=== PATIENT | male | born 1990 | race Caucasian/White ===

== ENCOUNTER 2017-03-20 09:42 | Emergency (ER) | payer MEDICAID ==
--- NOTE | 2017-03-20 09:54 | CPEKG ---
Heart Rate: 85 RR Interval: 706 P-R Interval: 140 QRSD Interval: 94 QT Interval: 360 QTC Interval: 428 P Wooton: 61 QRS Wooton: 77 T Wave Wooton: 66 EKG Severity - NORMAL ECG - EKG Impression: SINUS RHYTHM Electronically Signed By: Paty Ventura 22-Mar-2017 14:07:22
[2017-03-20 09:58] VITALS: PULSE 80; TEMP 98.6
[2017-03-20] MEDS ORDERED: LORazepam 2 MG/ML INJ IVP ONE (10:01)
[2017-03-20] MEDS ORDERED: LORazepam 2 MG/ML INJ ONE (10:03)
[2017-03-20] MEDS ORDERED: NS 1,000 ML IV ONE (10:06)
[2017-03-20 10:27] LABS: % IMMATURE GRANULYOCYTES 0.8 % (0.0-1.1); ABSOLUTE IMMATURE GRANULOCYTES 0.08 10^3/uL (0.00-0.10); ADD DIFF? NO; ADD MORPH? NO; ADD SCAN? NO; ATYPICAL LYMPHOCYTE FLAG 10 (0-99); FRAGMENT RBC FLAG 0 (0-99); HEMATOCRIT 51.7 % (40.0-51.0); HEMOGLOBIN 17.9 g/dL (13.7-17.5); LEFT SHIFT FLG 0 (0-99); LIPEMIA HEMOLYSIS FLAG 90 (0-99); MEAN CELL HEMOGLOBIN CONCENTR. 34.6 g/dL (32.4-36.7); MEAN CELL VOLUME 86.7 fL (81.5-99.8); MEAN PLATELET VOLUME 8.7 fL (8.7-11.7); PLATELET CLUMPS FLAG 0 (0-99); PLATELET COUNT 334 10^3/uL (150-400); RED BLOOD CELL COUNT 5.96 10^6/uL (4.40-6.38); RED CELL DISTRIBUTION WIDTH 12.3 % (11.5-15.2)
[2017-03-20 10:33] LABS: ANION GAP 29 mEq/L (8-16); CALCIUM 10.6 mg/dL (8.5-10.4); CARBON DIOXIDE 18 mEq/l (22-31); CHLORIDE 96 mEq/L (97-110); CREATININE 1.2 mg/dL (0.7-1.3); GLOMERULAR FILTRATION RATE > 60; GLUCOSE 168 mg/dL (70-100); POTASSIUM 4.2 mEq/L (3.5-5.2); SODIUM 143 mEq/L (134-144)
--- NOTE | 2017-03-20 10:51 | EDPHY ---
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 He was brought to the emergency department by ambulance after he apparently walked into a marijuana dispensary just prior to arrival then was witnessed to have an apparent tonic-clonic seizure lasting approximately 1 min. He did not his head and did not bite his tongue. The patient remembers nothing of this incident. He denies substances used over the last 24 hr except for marijuana. He has no history of seizure disorder or similar incident. On my exam, he has no complaints. REVIEW OF SYSTEMS: Aside from elements discussed in the HPI, a comprehensive 10-point review of systems was reviewed and is negative. PMH: Osteochondroma. No history of seizure disorder. SOCIAL HISTORY: Uses marijuana. Single. Denies other drug use. PHYSICAL EXAM: General:Patient is alert, in no acute distress. ENT:Eyes are normal to inspection. ENT inspection normal. No tongue laceration. Neck: Normal inspection. Full range of motion. Respiratory:No respiratory distress. Breath sounds normal bilaterally. Cardiovascular: Regular rate and rhythm. Strong peripheral pulses. Normal cap refill. Abdomen:The abdomen is nontender to palpation. There are no peritoneal signs. There are normal bowel sounds. Back: Normal to inspection. No tenderness to palpation. Skin: Normal color. No rash. Warm and dry. Extremities: Normal appearance. Full range of motion. Neuro: Oriented x3. Normal motor function. Normal sensory function. MDM: This is a young healthy male with an apparent first time seizure by description. Thankfully workup in the ED including CTH, labs and EKG are normal. The presentation is complicated by possible additional drug use , but patient denies this. I have referred the patient to Neurology and have urged him not to drive until evaluated. I see no signs of arrhythmia, infectious process, head trauma or CVA. - Data Points Imaging Results: Imaging Impressions Head CT 03/20/17 11:02 Impression: 1. No significant intracranial abnormality seen. If symptoms worsen, additional imaging may be necessary. Findings discussed with Louis Fatima MD at 11:43 hour, 03/20/2017. Laboratory Results: Laboratory Results 03/20/17 10:25 03/20/17 10:25 03/20/17 03/20/17 03/20/17 11:10 10:25 10:25 WBC 10.56 10^3/uL H 10^3/uL (3.80-9.50) RBC 5.96 10^6/uL 10^6/uL (4.40-6.38) Hgb 17.9 g/dL H g/dL (13.7-17.5) Hct 51.7 % H % (40.0-51.0) MCV 86.7 fL fL (81.5-99.8) MCH 30.0 pg pg (27.9-34.1) MCHC 34.6 g/dL g/dL (32.4-36.7) RDW 12.3 % % (11.5-15.2) Plt Count 334 10^3/uL 10^3/uL (150-400) MPV 8.7 fL fL (8.7-11.7) Neut % (Auto) 46.8 % % (39.3-74.2) Lymph % (Auto) 41.5 % % (15.0-45.0) Parker % (Auto) 9.9 % % (4.5-13.0) Eos % (Auto) 0.6 % % (0.6-7.6) Baso % (Auto) 0.4 % % (0.3-1.7) Nucleat RBC Rel Count 0.0 % % (0.0-0.2) Absolute Neuts (auto) 4.95 10^3/uL 10^3/uL (1.70-6.50) Absolute Lymphs (auto) 4.38 10^3/uL H 10^3/uL (1.00-3.00) Absolute Monos (auto) 1.05 10^3/uL H 10^3/uL (0.30-0.80) Absolute Eos (auto) 0.06 10^3/uL 10^3/uL (0.03-0.40) Absolute Basos (auto) 0.04 10^3/uL 10^3/uL (0.02-0.10) Absolute Nucleated RBC 0.00 10^3/uL 10^3/uL (0-0.01) Immature Gran % 0.8 % % (0.0-1.1) Immature Gran # 0.08 10^3/uL 10^3/uL (0.00-0.10) Sodium 143 mEq/L mEq/L (134-144) Potassium 4.2 mEq/L mEq/L (3.5-5.2) Chloride 96 mEq/L L mEq/L (97-110) Carbon Dioxide 18 mEq/l L mEq/l (22-31) Anion Gap 29 mEq/L H mEq/L (8-16) BUN 6 mg/dL L mg/dL (7-23) Creatinine 1.2 mg/dL mg/dL (0.7-1.3) Estimated GFR > 60 Glucose 168 mg/dL H mg/dL (70-100) Calcium 10.6 mg/dL H mg/dL (8.5-10.4) Urine Opiates Screen NEGATIVE (NEGATIVE) Urine Barbiturates NEGATIVE (NEGATIVE) Ur Phencyclidine Scrn NEGATIVE (NEGATIVE) Ur Amphetamine Screen NEGATIVE (NEGATIVE) U Benzodiazepines Scrn NEGATIVE (NEGATIVE) Urine Cocaine Screen NEGATIVE (NEGATIVE) U Marijuana (THC) Screen NEGATIVE (NEGATIVE) Medications Given: Discontinued Medications Sodium Chloride (Ns) 1,000 mls @ 0 mls/hr IV EDNOW ONE; Wide Open PRN Reason: Protocol Stop: 03/20/17 10:07 Last Admin: 03/20/17 10:12 Dose: 1,000 mls Lorazepam (Ativan Injection) 1 mg IVP EDNOW ONE Stop: 03/20/17 10:02 Last Admin: 03/20/17 10:08 Dose: Not Given Ondansetron HCl (Zofran) 4 mg IVP EDNOW ONE Stop: 03/20/17 12:09 Last Admin: 03/20/17 12:09 Dose: 4 mg General Time Seen by Provider: 03/20/17 09:50 Initial Vital Signs: Initial Vital Signs Temperature (C) 37 C 03/20/17 09:55 Heart Rate 80 03/20/17 09:55 Respiratory Rate 18 03/20/17 09:55 Blood Pressure 165/105 H 03/20/17 09:55 O2 Sat (%) 92 03/20/17 09:55 O2 Delivery Mode Room Air Allergies/Adverse Reactions: No Known Drug Allergies Allergy (Verified 03/20/17 09:55) Departure - Departure Disposition: Home, Routine, Self-Care Clinical Impression: Seizure Condition: Good Instructions: New-Onset Seizure in Adults (ED) Additional Instructions: Follow-up with your primary doctor and/or neurologist within one week. Do not drive until cleared by your physician. Return to the ED for confusion, headache , seizure or other concerns. You have an appointment at [facility] on March 25 at 9: 30 [address] [address] Please arrive on time and bring a photo ID, list of any medications you are taking, and a $20 co-pay Check in at the "BLUE" desk. Your appointment is with Dr. Casi Jacobs Referrals: NONE *PRIMARY CARE P,. [Primary Care Provider] - As per Instructions
[2017-03-20] MEDS ORDERED: ONDANSETRON 4 MG/2 ML VIAL ONE (12:08)
[2017-03-20] MEDS ORDERED: ONDANSETRON 4 MG/2 ML VIAL IVP ONE (12:08)
[2017-03-20 13:35] VITALS: BP 142/86; RESP 16; O2SAT 95
--- NOTE | 2017-03-20 13:42 | ASMTCMCOM ---
CM Note CM Note Notes: Patient has been screened and application started for Medicaid application. Appointment for medical follow up scheduled at [facility] on March 25 (details in discharge instructions). Patient verbalizes understanding of follow up appointment and instructions. Contact information for the clinic included Date Signed: 03/20/2017 01:41 PM Electronically Signed By:Lorrie Almeida RN
== END 2017-03-20 13:33 | disposition home or self-care (01) ==
PROC: 3E0337Z Introduction of Electrolytic and Water Balance Substance into Peripheral Vein, Percutaneous Approach (ICD-10-PCS; principal; 2017-03-20)
DX: R56.9 Unspecified convulsions (principal); E86.9 Volume depletion, unspecified
CPT/HCPCS: 80305; 96374; J2060; J2405

== ENCOUNTER → 2017-05-09 | Outpatient (CLI) | payer MEDICAID ==
--- NOTE | 2017-05-12 14:48 | CPEEG ---
[f rep st] ELECTROENCEPHALOGRAM ELECTROENCEPHALOGRAM DATE OF STUDY: 05/09/2017 INTRODUCTION: This is a multichannel EEG using the standard international 10- 20 system of disc electrode placement. A single EKG channel was monitored for the duration of the recording. This study was undertaken for evaluation of a single first-time seizure. No pertinent medications to report. Duration of the study is 30 minutes. DESCRIPTION OF RECORDING: In the maximum alert state, the patient achieved a symmetric posterior dominant rhythm of 11-12 hertz alpha activity that attenuated with eye opening. Activating measures including photic stimulation and hyperventilation failed to activate the tracing. Periods of drowsiness were observed as marked by slow roving eye movements, waning of the background and anterior spread of alpha. No sleep architecture was observed. Persistently throughout the recording, T4 electrode artifact was noted. The EKG demonstrated normal sinus rhythm. INTERPRETATION: This is a normal awake and drowsy EEG. CLINICAL CORRELATION: No focal lateralizing epileptiform discharges. /[id number]/MODL MTDD
== END ==
LOC: FCPNEURO 07:54
PROVIDERS: ATTEND Psychiatry & Neurology Neurology
DX: R56.9 Unspecified convulsions (principal)

== ENCOUNTER → 2017-05-27 | Outpatient (CLI) | payer MEDICAID ==
[~2017-05-27] MED LIST: GADOBUTROL 10 ML VIAL IVP ONE
== END ==
LOC: FIMAGING 07:12
PROVIDERS: ATTEND Psychiatry & Neurology Neurology
DX: R56.9 Unspecified convulsions (principal)
CPT/HCPCS: A9585